=== PATIENT | male | born 1965 | race Hispanic/Latino ===

== ENCOUNTER 2019-10-29 | Day surgery (SDC) | payer SELFPAY ==
[~2019-10-29] MED LIST: CIMETIDINE400 MG PO; INDOMETHACIN50 MG PO
[2019-10-29] MEDS ORDERED: PERCOCET 5/325M1 TAB PO (11:56)
== END 2019-10-29 12:27 | disposition home or self-care (01) | DRG 572 ==
PROC: 0JB50ZZ Excision of Left Neck Subcutaneous Tissue and Fascia, Open Approach (ICD-10-PCS; principal; 2019-10-29)
PROC: 0JB40ZZ Excision of Right Neck Subcutaneous Tissue and Fascia, Open Approach (ICD-10-PCS; 2019-10-29)
DX: D17.0 Benign lipomatous neoplasm of skin and subcutaneous tissue of head, face and neck (principal)
CPT/HCPCS: J0131; J1100

== ENCOUNTER 2020-02-26 14:14 | Emergency (ER) | payer SELFPAY ==
[~2020-02-26] VITALS: Ht 167.6 cm; Wt 69.0 kg
[~2020-02-26 14:14] MED LIST changes: +PERCOCET 5/325M1 TAB PO
[2020-02-26] MEDS ORDERED: DECADRON4 MG PO ×2 (14:59)
[2020-02-26] MEDS ORDERED: TRIAMCINOLON0.11 EX ×2 (15:10)
[2020-02-26 15:15] VITALS: BP 122/76
== END 2020-02-26 15:15 | disposition home or self-care (01) | DRG 607 ==
LOC: ED 14:14
DX: L30.9 Dermatitis, unspecified (principal)

== ENCOUNTER 2020-03-26 03:53 | Emergency (ER) | payer SELFPAY ==
[~2020-03-26] VITALS: Ht 167.6 cm; Wt 68.0 kg
[~2020-03-26 03:53] MED LIST changes: +DECADRON4 MG PO; +TRIAMCINOLON0.11 EX
[2020-03-26 04:59] LABS: HEMATOCRIT 38.9 % (39.0-50.0); HEMOGLOBIN 12.2 g/dl (14.0-18.0); IMMATURE GRANULOCYTES 0.3 % (0.0-5.0); MEAN CELL VOLUME 88.2 fL CALC (80.0-100.0); MEAN CORPUSCULAR HGB 27.7 pG CALC (26.0-32.0); MEAN CORPUSCULAR HGB CONC 31.4 g/dL CAL (32.0-36.0); NEUT# 4.98 thou/uL (1.82-7.42); RED BLOOD COUNT 4.41 mill/uL (4.70-6.10); URINE BILIRUBIN - DIPSTICK NEGATIVE (NEGATIVE); URINE BLOOD DIPSTICK LARGE (NEGATIVE); URINE COLOR YELLOW; URINE GLUCOSE - DIPSTICK NEGATIVE (NEGATIVE); URINE KETONE NEGATIVE (NEGATIVE); URINE LEUK ESTERASE NEGATIVE (NEGATIVE); URINE NITRITE - DIPSTICK NEGATIVE (Negative); URINE PROTEIN - DIPSTICK NEGATIVE (NEG-TRACE); URINE UROBILINOGEN - DIPSTICK 0.2 E.U./dL (0.2)
[2020-03-26 05:11] LABS: URINE SQUAMOUS EPITHELIAL CELL FEW EPI/hpf (0-FEW); URINE WBC 0-2 WBC/hpf (0-5)
[2020-03-26 05:13] LABS: ALBUMIN 4.4 g/dL (3.2-5.0); ALKALINE PHOSPHATASE 145 u/l (38-126); AMYLASE 61 u/l (30-110); ANION GAP 14 (6-22 (CALC)); BILIRUBIN, TOTAL 0.4 mg/dL (0.0-1.4); BUN 14 mg/dL (9-20); BUN/CREATININE RATIO 13 (12-20 (CALC)); CARBON DIOXIDE 23 mmol/l (22-30); CHLORIDE 106 mmol/l (95-108); CREATININE 1.1 mg/dL (0.7-1.3); GFR > 60 ML/MIN (>=60 (CALC)); GFR FOR AFR.AMER. > 60 ML/MIN (>=60 (CALC)); LIPASE 131 u/l (23-300); POTASSIUM 4.1 mmol/l (3.5-5.1); SGOT/AST 22 u/l (17-59); SODIUM 139 mmol/l (137-146); TOTAL PROTEIN 7.9 g/dL (6.3-8.2)
[2020-03-26] MEDS ORDERED: MAGNESIUM296 ML/BTL PO (05:29)
[2020-03-26] MEDS ORDERED: MIRALAX3350 N1 PO (05:29)
[2020-03-26 05:30] VITALS: BP 138/75
== END 2020-03-26 05:30 | disposition home or self-care (01) | DRG 392 ==
LOC: ED 03:53
PROVIDERS: Family Medicine
DX: K59.00 Constipation, unspecified (principal)

== ENCOUNTER 2024-09-21 15:20 | Emergency (ER) | payer OTHER ==
[~2024-09-21] VITALS: Ht 167.6 cm; Wt 72.5 kg
[2024-09-21] VITALS (17 sets, daily range): BP systolic 128–168; BP diastolic 79–120
[~2024-09-21 15:20] MED LIST changes: +MAGNESIUM296 ML/BTL PO; +MIRALAX3350 N1 PO
[2024-09-21] MEDS ORDERED: KETOROLAC TROMETHAMINE 30 MG/ML SDV IV ONE (15:55)
[2024-09-21 16:19] LABS: BASO% 0.3 % (0-3); EOS% 1.3 % (0-8); HEMATOCRIT 40.4 % (39.0-50.0); HEMOGLOBIN 12.9 g/dl (14.0-18.0); IMMATURE GRANULOCYTES 0.2 % (0.0-5.0); LYMPH% 26.5 % (15-41); MEAN CELL VOLUME 90.2 fL CALC (80.0-100.0); MEAN CORPUSCULAR HGB 28.8 pG CALC (26.0-32.0); MEAN CORPUSCULAR HGB CONC 31.9 g/dL CAL (32.0-36.0); MONO% 7.6 % (2-13); NEUT# 5.61 thou/uL (1.82-7.42); NEUT% 64.1 % (42-76); RED BLOOD COUNT 4.48 mill/uL (4.70-6.10); RED CELL DISTRI WIDTH 13.3 % (11.5-15.5)
[2024-09-21 16:33] LABS: ALBUMIN 4.2 g/dL (3.2-5.0); CREATININE 1.8 mg/dL (0.7-1.3); POTASSIUM 4.1 mmol/l (3.5-5.1); TOTAL PROTEIN 7.3 g/dL (6.3-8.2)
[2024-09-21 16:35] LABS: BILIRUBIN, TOTAL 0.9 mg/dL (0.2-1.3)
[2024-09-21] MEDS ORDERED: DIATRIZOATE MEGLUMINE & SODIUM 30 ML/BTL PO ONE (17:35)
[2024-09-21] MEDS ORDERED: LACTATED RINGER'S 1,000 ML IV STA (18:40)
== END 2024-09-21 20:35 | disposition home or self-care (01) | DRG 394 ==
LOC: ED 15:20
PROVIDERS: Family Medicine
DX: K42.9 Umbilical hernia without obstruction or gangrene (principal); N17.9 Acute kidney failure, unspecified